=== PATIENT | female | born 1965 | race Caucasian/White ===

== ENCOUNTER 2021-08-28 11:43 | Emergency (ER) | payer OTHER ==
[2021-08-28] MEDS ORDERED: Ondansetron PF 4 MG/2 ML Vial ONE ×2 (12:05→14:56)
[2021-08-28] MEDS ORDERED: Morphine 4 MG/ML VIAL ONE (12:05)
[2021-08-28 12:56] LABS: #Monocytes 0.3 10x3/uL (0.0-1.1); #Neutrophils 4.1 10x3/uL (1.5-8.4); %Basophils 0.5 % (0.0-2.0); %Eosinophils 0.3 % (0.0-6.0); %Lymphocytes 29.5 % (18.0-47.0); %Monocytes 5.1 % (0.0-10.0); Hemoglobin 11.3 g/dL (12.0-15.5); Mean Corpuscular HGB CONC 31.7 g/dL (32.0-36.0); Mean Corpuscular Hemoglobin 28.4 pg (27.0-33.0); Mean Corpuscular Volume 89.7 fl (81.6-98.3); Platelet Count 272 10x3/uL (150-450); RBC Distribution Width 13.6 % (11.5-14.5); Red Blood Cell (RBC) Count 3.98 10x6/uL (3.90-5.03); White Blood Cell (WBC) Count 6.4 10x3/uL (3.5-10.5)
[2021-08-28 13:10] LABS: ALT (SGPT) 13 U/L (8-55); AST (SGOT) 15 U/L (5-34); Albumin 3.7 g/dL (3.5-5.0); Alkaline Phosphatase 46 U/L (40-110); Anion Gap 10 mmol/L (10-20); BUN (Urea Nitrogen) 23 mg/dL (9.8-20.1); Bilirubin, Total 0.4 mg/dL (0.2-1.2); Calc. Creatinine Clearance 0 mL/min (70-130); Calcium 8.4 mg/dL (7.8-10.44); Carbon Dioxide 25 mmol/L (22-29); Chloride 108 mmol/L (98-107); Globulin 2.8 g/dL (2.4-3.5); Glucose 100 mg/dL (70-105); Lipase 21 U/L (8-78); Potassium 3.5 mmol/L (3.5-5.1); Protein, Total 6.5 g/dL (6.0-8.3); Sodium 139 mmol/L (136-145)
[2021-08-28] MEDS ORDERED: Ketorolac Tromethamine 30 MG/ML VIAL ONE (13:40)
[2021-08-28 14:40] LABS: Bilirubin Neg (Negative); Blood, Urine 250 (Negative); Clarity Clear (Clear); Glucose, Urine (Dipstick) Normal (Negative); Ketone, Urine 15 mg/dL (Negative); Leukocyte Negative (Negative); Nitrite Negative (Negative); Protein, Urine (Dipstick) 15 mg/dl (Neg-Trace); Urobilinogen Normal mg/dL (Less than 2)
[2021-08-28 14:45] LABS: RBC/HPF 21-50 HPF (0-3); Squamous Epithelial 0-3 HPF (0-3); WBC/HPF 0-3 HPF (0-3)
[2021-08-28 14:46] LABS: Bacteria/HPF Rare-Few HPF (None Seen); Mucous/LPF 1+ LPF (<2+)
== END 2021-08-28 15:37 | disposition home or self-care (01) ==
LOC: CSHERS 11:43
DX: N13.2 Hydronephrosis with renal and ureteral calculous obstruction (principal)
CPT/HCPCS: 36415; 74176; 80053; 81003; 81015; 83690; 85025; 96374; 96375; 96376; J1885; J2270; J2405

== ENCOUNTER 2024-01-27 05:40 | Day surgery (SDC) | payer OTHER ==
[2024-01-26 14:25] VITALS: BMI 34.3
[2024-01-27] MEDS ORDERED: EPINEPHrine 1 MG/ML VIAL ONE (06:25)
[2024-01-27] MEDS ORDERED: Bupivacaine PF 0.5% 30 ML VIAL ONE (06:26)
[2024-01-27] MEDS ORDERED: CEFAZOLIN 2 GM VIAL ONE (06:26)
[2024-01-27] MEDS ORDERED: Midazolam HCl 2 mg/2 ml Vial ONE (06:49)
[2024-01-27] MEDS ORDERED: fentaNYL 50 mcg/mL 1 mL Vial ONE (06:49)
[2024-01-27] MEDS ORDERED: PROPOFOL 60 ML ONE (06:49)
== END 2024-01-27 08:30 | disposition home or self-care (01) ==
LOC: CSHSDC 05:40
PROVIDERS: ATTEND Surgery
PROC: 0JH60WZ Insertion of Totally Implantable Vascular Access Device into Chest Subcutaneous Tissue and Fascia, Open Approach (ICD-10-PCS; principal; 2024-01-27)
DX: C16.6 Malignant neoplasm of greater curvature of stomach, unspecified (principal); E78.00 Pure hypercholesterolemia, unspecified; Z90.710 Acquired absence of both cervix and uterus
CPT/HCPCS: 71045; C1788; J0171; J0665; J1642; J2250; J2704; J3010

== ENCOUNTER 2024-08-16 13:53 | Inpatient (IN) | payer OTHER ==
[~2024-08-16 13:53] MED LIST: Iopamidol 300 61% 100 ML VIAL FS ONE
[2024-08-16] MEDS ORDERED: Piperacillin/Tazobactam 3.375 GM VIAL ONE (14:24)
[2024-08-16] MEDS ORDERED: Ondansetron ODT 4 MG TAB ONE (14:33)
[2024-08-16] MEDS ORDERED: Acetaminophen 500 MG TAB ONE (14:56)
[2024-08-16 14:57] LABS: Hematocrit 32.6 % (34.9-44.5); Hemoglobin 10.9 g/dL (12.0-15.5); Mean Corpuscular HGB CONC 33.4 g/dL (32.0-36.0); Mean Corpuscular Hemoglobin 27.9 pg (27.0-33.0); Mean Corpuscular Volume 83.6 fL (81.6-98.3); Mean Platelet Volume 9.9 fL (7.4-10.4); Platelet Count 197 10x3/uL (150-450); RBC Distribution Width 17.3 % (11.5-14.5); White Blood Cell (WBC) Count 16.5 10x3/uL (3.5-10.5)
[2024-08-16 14:58] LABS: MDiff Complete? YES
[2024-08-16 15:09] LABS: ALT (SGPT) 41 U/L (8-55); AST (SGOT) 31 U/L (5-34); Albumin 3.1 g/dL (3.5-5.0); Alkaline Phosphatase 72 U/L (40-110); Anion Gap 12 mmol/L (10-20); BUN (Urea Nitrogen) 10 mg/dL (9.8-20.1); Bilirubin, Total 0.8 mg/dL (0.2-1.2); Calc. Creatinine Clearance 0 mL/min (70-130); Calcium 9.2 mg/dL (7.8-10.44); Carbon Dioxide 22 mmol/L (22-29); Chloride 99 mmol/L (98-107); Estimated GFR 102; Globulin 3.5 g/dL (2.4-3.5); Glucose 121 mg/dL (70-105); Lipase 5 U/L (8-78); Potassium 3.4 mmol/L (3.5-5.1); Protein, Total 6.6 g/dL (6.0-8.3); Sodium 130 mmol/L (136-145)
[2024-08-16 16:11] LABS: Band 7 % (5-11)
[2024-08-16 16:13] LABS: Lymphocytes 7 % (21-51); Monocytes 6 % (0-10); Neutrophil 80 % (42-75)
[2024-08-16 16:14] LABS: Anisocytosis SLIGHT = 6-15 cells (100X) (0-5/hpf)
[2024-08-16 16:15] LABS: Platelet Adequacy Comment Appears Adequate
[2024-08-16 16:58] LABS: Bilirubin Neg (Negative); Blood, Urine 25 (Negative); Clarity Clear (Clear); Glucose, Urine (Dipstick) Normal (Negative); Ketone, Urine 15 mg/dL (Negative); Leukocyte 100 (Negative); Nitrite Positive (Negative); Protein, Urine (Dipstick) 100 mg/dl (Neg-Trace); Urobilinogen Normal mg/dL (Less than 2)
[2024-08-16 17:14] LABS: CAUTI Indications for Culture Fever or rigors
[2024-08-16 17:15] LABS: Bacteria/HPF 2+ HPF (None Seen); Mucous/LPF 1+ LPF (<2+)
[2024-08-16 17:18] LABS: Urine Culture Reflex Yes Yes
[2024-08-16] MEDS ORDERED: traMADol HCl 50 MG TAB PO PRN (17:49)
[2024-08-16] MEDS ORDERED: Acetaminophen 325 MG TAB PO PRN (17:49)
[2024-08-16 19:48] VITALS: BMI 27.5
[2024-08-16] MEDS: cefTRIAXone\\ROCEPHIN 2 GM in Sodium Chloride 0.9% 100 ML IVPB SCH (20:08)
[2024-08-16] MEDS: NS 0.9% w/ 20 MEQ KCL 1,000 ML/1,000 ML BAG IV SCH (20:08)
[2024-08-16] MEDS: Ondansetron PF 4 MG/2 ML Vial IVP PRN (20:22)
[2024-08-16] MEDS ORDERED: Ibuprofen 400 MG TAB PO SCH (21:00)
[2024-08-16] MEDS: Promethazine HCl 12.5 MG, Admixture Fee 1 EACH in Sodium Chloride 0.9% 50 ML IVPB SCH (22:03)
[2024-08-16] MEDS: Prochlorperazine 10 MG/2 ML VIAL IM SCH (23:43)
[2024-08-16] MEDS: Magnesium Sulfate/D5W 1 GM in Premix 1 BAG IVPB SCH (23:43)
[2024-08-17] MEDS: fentaNYL 50 mcg/mL 1 mL Vial SLOW IVP SCH (00:02)
[2024-08-17] MEDS: Sucralfate 1 GM/10 ML UDCUP PO SCH (00:03)
[2024-08-17] MEDS: NS 0.9% w/ 20 MEQ KCL 1,000 ML/1,000 ML BAG IV SCH (00:30)
[2024-08-17 04:26] LABS: Hemoglobin 9.7 g/dL (12.0-15.5); Mean Corpuscular HGB CONC 31.3 g/dL (32.0-36.0); Mean Corpuscular Hemoglobin 26.6 pg (27.0-33.0); Mean Corpuscular Volume 85.2 fL (81.6-98.3); Mean Platelet Volume 9.3 fL (7.4-10.4); Platelet Count 169 10x3/uL (150-450); RBC Distribution Width 17.4 % (11.5-14.5); Red Blood Cell (RBC) Count 3.64 10x6/uL (3.90-5.03); White Blood Cell (WBC) Count 15.7 10x3/uL (3.5-10.5)
[2024-08-17 04:32] LABS: Anion Gap 13 mmol/L (10-20); BUN (Urea Nitrogen) 9 mg/dL (9.8-20.1); Calc. Creatinine Clearance 109 mL/min (70-130); Calcium 8.6 mg/dL (7.8-10.44); Carbon Dioxide 19 mmol/L (22-29); Chloride 110 mmol/L (98-107); Estimated GFR 105; Glucose 117 mg/dL (70-105); Magnesium 2.1 mg/dL (1.6-2.6); Potassium 3.5 mmol/L (3.5-5.1); Sodium 138 mmol/L (136-145)
[2024-08-17 05:21] LABS: MDiff Complete? YES
[2024-08-17 05:23] LABS: Band 18 % (5-11); Lymphocytes 8 % (21-51); Monocytes 8 % (0-10); Neutrophil 66 % (42-75)
[2024-08-17 05:24] LABS: Platelet Adequacy Comment Platelets Normal; RBC Morph Comment Within Normal Limits
[2024-08-17] MEDS: Meropenem 1 GM in Sodium Chloride 0.9% 100 ML IVPB SCH ×2 (09:18→18:04)
[2024-08-17] MEDS: Enoxaparin 40 MG (0.4 mL) SYRINGE SC SCH (09:28)
[2024-08-17 12:00] VITALS: BMI 27.5
[2024-08-17] MEDS ORDERED: Meropenem 1 GM in Sodium Chloride 0.9% 100 ML IVPB SCH (14:00)
[2024-08-17] MEDS: Promethazine HCl 12.5 MG in Sodium Chloride 0.9% 50 ML IVPB PRN (19:26)
[2024-08-18 04:16] LABS: #Basophils 0.02 10x3/uL (0.0-0.2); #Eosinophils 0.01 10x3/uL (0.0-0.5); #Neutrophils 9.31 10x3/uL (1.5-8.4); %Basophils 0.2 % (0.0-2.0); %Eosinophils 0.1 % (0.0-6.0); %Lymphocytes 13.5 % (18.0-47.0); %Monocytes 8.3 % (0.0-10.0); %Neutrophils 77.4 % (40.0-75.0); Hematocrit 29.2 % (34.9-44.5); Hemoglobin 9.6 g/dL (12.0-15.5); Mean Corpuscular HGB CONC 32.9 g/dL (32.0-36.0); Mean Corpuscular Hemoglobin 27.6 pg (27.0-33.0); Mean Corpuscular Volume 83.9 fL (81.6-98.3); Mean Platelet Volume 9.3 fL (7.4-10.4); Platelet Count 195 10x3/uL (150-450); RBC Distribution Width 17.5 % (11.5-14.5); Red Blood Cell (RBC) Count 3.48 10x6/uL (3.90-5.03)
[2024-08-18 05:07] LABS: Anion Gap 12 mmol/L (10-20); BUN (Urea Nitrogen) 9 mg/dL (9.8-20.1); Calc. Creatinine Clearance 118 mL/min (70-130); Calcium 8.7 mg/dL (7.8-10.44); Carbon Dioxide 20 mmol/L (22-29); Chloride 108 mmol/L (98-107); Estimated GFR 107; Glucose 83 mg/dL (70-105); Potassium 3.3 mmol/L (3.5-5.1); Sodium 137 mmol/L (136-145)
[2024-08-18] MEDS: Potassium Chloride 20 MEQ TAB PO SCH (09:55)
[2024-08-18] MEDS: Floranex 1 GM Packet PO SCH (17:21)
[2024-08-19 05:33] LABS: Anion Gap 12 mmol/L (10-20); BUN (Urea Nitrogen) 5 mg/dL (9.8-20.1); Calc. Creatinine Clearance 125 mL/min (70-130); Calcium 8.7 mg/dL (7.8-10.44); Carbon Dioxide 23 mmol/L (22-29); Chloride 106 mmol/L (98-107); Estimated GFR 109; Glucose 86 mg/dL (70-105); Potassium 3.5 mmol/L (3.5-5.1); Sodium 137 mmol/L (136-145)
[2024-08-19 05:52] LABS: #Basophils 0.02 10x3/uL (0.0-0.2); #Eosinophils 0.06 10x3/uL (0.0-0.5); #Neutrophils 5.76 10x3/uL (1.5-8.4); %Basophils 0.2 % (0.0-2.0); %Eosinophils 0.7 % (0.0-6.0); %Lymphocytes 21.3 % (18.0-47.0); %Monocytes 8.3 % (0.0-10.0); %Neutrophils 68.7 % (40.0-75.0); Hematocrit 27.6 % (34.9-44.5); Hemoglobin 9.2 g/dL (12.0-15.5); Mean Corpuscular HGB CONC 33.3 g/dL (32.0-36.0); Mean Corpuscular Hemoglobin 27.7 pg (27.0-33.0); Mean Corpuscular Volume 83.1 fL (81.6-98.3); Mean Platelet Volume 8.3 fL (7.4-10.4); Platelet Count 419 10x3/uL (150-450); RBC Distribution Width 17.4 % (11.5-14.5); Red Blood Cell (RBC) Count 3.32 10x6/uL (3.90-5.03); White Blood Cell (WBC) Count 8.4 10x3/uL (3.5-10.5)
[2024-08-19] MEDS: Floranex 1 GM Packet PO SCH (08:54)
[2024-08-19] MEDS: Potassium Chloride 20 MEQ TAB PO SCH (10:31)
[2024-08-19 12:56] VITALS: BP 133/84; TEMP 98.6
== END 2024-08-19 12:30 | disposition home or self-care (01) | DRG 872 ==
LOC: CSHERS 13:53 → CSHTELE 17:40
PROVIDERS: ADMIT Internal Medicine; ATTEND Internal Medicine
DX: A41.9 Sepsis, unspecified organism (principal); N10 Acute pyelonephritis; E87.1 Hypo-osmolality and hyponatremia; E87.6 Hypokalemia; Z90.49 Acquired absence of other specified parts of digestive tract; Z90.710 Acquired absence of both cervix and uterus; Z98.51 Tubal ligation status; Z88.5 Allergy status to narcotic agent; Z88.8 Allergy status to other drugs, medicaments and biological substances; Z85.028 Personal history of other malignant neoplasm of stomach
CPT/HCPCS: 36415; 71045; 74177; 80048; 80053; 81001; 83605; 83690; 83735; 85025; 87040; 87077; 87086; 87186; 96374; J0696; J0780; J2185; J2405; J2543; J2550; J3010; J3475; J3480; Q0162